=== PATIENT | male | born 1965 | race Caucasian/White ===

== ENCOUNTER 2018-01-11 13:24 | Emergency (ER) | payer BC ==
[~2018-01-11] VITALS: Ht 175.3 cm; Wt 75.0 kg
[2018-01-11 13:27] VITALS: BP 106/73
== END 2018-01-11 14:30 | disposition left against medical advice (07) ==
LOC: ER 14:00
DX: T78.40XA Allergy, unspecified, initial encounter (principal); X58.XXXA Exposure to other specified factors, initial encounter; Z53.21 Procedure and treatment not carried out due to patient leaving prior to being seen by health care provider